=== PATIENT | female | born 2000 | race Caucasian/White ===

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

== ENCOUNTER 2019-06-03 09:00 | Inpatient (IN) | payer SELFPAY ==
[~2019-06-03] VITALS: Ht 157.5 cm; Wt 62.1 kg
[~2019-06-03 09:00] MED LIST: LAC PO; LEVAQUIN750 MG PO
[2019-06-03 11:34] LABS: BASOPHIL % 0.8 % (0-2); PLATELET COUNT 360 x10^3mcL (130-400); RED CELL DISTRIBUTION WIDTH 12.2 % (11.5-14.5)
[2019-06-03 11:35] LABS: UA SPECIFIC GRAVITY 1.015 (1.005-1.035); microscopic required? YES; urine erythrocyte 2+ (NEGATIVE)
[2019-06-03 11:50] LABS: AMPHETAMINE QUAL UR NONE DETECTED (See below)
[2019-06-03 11:58] LABS: CALCIUM 8.4 mg/dL (8.5-10.1); CHLORIDE SERUM 104 mmol/L (98-107); CREATININE SERUM 0.7 mg/dL (0.6-1.0); GFR1 > 60 mL/min; GLUCOSE SERUM 99 mg/dL (74-106); SODIUM SERUM 140 mmol/L (136-145)
[2019-06-03 12:02] LABS: ALKALINE PHOSPHATASE 92 U/L (46-116); ALT/SGPT 37 U/L (14-59); AMYLASE 34 U/L (25-115); AST/SGOT 21 U/L (15-37); BILIRUBIN TOTAL 0.2 mg/dL (0.20-1.00); LIPASE 64 IU/L (73-393); TOTAL PROTEIN, SERUM 7.7 g/dL (6.4-8.2)
[2019-06-03 12:09] LABS: ALBUMIN 3.2 g/dL (3.4-5.0)
[2019-06-03 15:37] VITALS: BP 109/77
[2019-06-03 15:40] VITALS: Ht 157.5 cm; Wt 62.1 kg
[2019-06-03 16:26] VITALS: BP 106/68
[2019-06-03 21:20] VITALS: BP 97/60
[2019-06-04 05:44] VITALS: BP 93/55
[2019-06-04 06:33] LABS: BASOPHIL % 0.2 % (0-2); PLATELET COUNT 336 x10^3mcL (130-400); RED CELL DISTRIBUTION WIDTH 12.8 % (11.5-14.5)
[2019-06-04 06:56] LABS: CALCIUM 7.9 mg/dL (8.5-10.1); CARBON DIOXIDE 25.7 mmol/L (21-32); CHLORIDE SERUM 105 mmol/L (98-107); CREATININE SERUM 0.7 mg/dL (0.6-1.0); GFR1 > 60 mL/min; GLUCOSE SERUM 119 mg/dL (74-106); MAGNESIUM 1.8 mg/dL (1.8-2.4); PHOSPHOROUS 2.4 mg/dL (2.5-4.9); POTASSIUM SERUM 3.5 mmol/L (3.5-5.1); SODIUM SERUM 138 mmol/L (136-145)
[2019-06-04 07:58] VITALS: BP 95/57
[2019-06-04 11:17] VITALS: BP 98/62
[2019-06-04 16:31] VITALS: BP 102/66
[2019-06-04 20:02] VITALS: BP 103/67
[2019-06-05 05:53] VITALS: BP 100/61
[2019-06-05 06:09] LABS: BASOPHIL % 0.4 % (0-2); PLATELET COUNT 321 x10^3mcL (130-400); RED CELL DISTRIBUTION WIDTH 12.8 % (11.5-14.5)
[2019-06-05 06:56] LABS: CALCIUM 8.4 mg/dL (8.5-10.1); CHLORIDE SERUM 103 mmol/L (98-107); CREATININE SERUM 0.6 mg/dL (0.6-1.0); GFR1 > 60 mL/min; GLUCOSE SERUM 93 mg/dL (74-106); MAGNESIUM 1.9 mg/dL (1.8-2.4); PHOSPHOROUS 2.8 mg/dL (2.5-4.9); POTASSIUM SERUM 3.6 mmol/L (3.5-5.1); SODIUM SERUM 138 mmol/L (136-145)
[2019-06-05 07:21] VITALS: BP 99/61
[2019-06-05 11:34] VITALS: BP 100/65
[2019-06-05 17:28] VITALS: BP 96/63
[2019-06-05 20:28] VITALS: BP 104/65
[2019-06-06 05:16] VITALS: BP 93/56
[2019-06-06 06:37] LABS: BASOPHIL % 0.4 % (0-2); PLATELET COUNT 367 x10^3mcL (130-400); RED CELL DISTRIBUTION WIDTH 12.5 % (11.5-14.5)
[2019-06-06 06:56] LABS: CALCIUM 8.3 mg/dL (8.5-10.1); CARBON DIOXIDE 29.9 mmol/L (21-32); CHLORIDE SERUM 103 mmol/L (98-107); CREATININE SERUM 0.7 mg/dL (0.6-1.0); GFR1 > 60 mL/min; GLUCOSE SERUM 91 mg/dL (74-106); MAGNESIUM 1.9 mg/dL (1.8-2.4); PHOSPHOROUS 3.6 mg/dL (2.5-4.9); POTASSIUM SERUM 3.6 mmol/L (3.5-5.1); SODIUM SERUM 139 mmol/L (136-145)
[2019-06-06 08:43] VITALS: BP 100/59
[2019-06-06 13:23] VITALS: BP 108/61
[2019-06-06 16:37] VITALS: BP 98/59
[2019-06-06 17:18] VITALS: BP 98/59
[2019-06-06] MEDS ORDERED: CIPRO500 MG PO (17:20)
== END 2019-06-06 18:26 | disposition home or self-care (01) | DRG 690 ==
LOC: ED 09:00 → MU 12:44 → DU 15:18 → MU 06-06 09:43
PROVIDERS: Emergency Medicine; ADMIT Internal Medicine
DX: N10 Acute pyelonephritis (principal); E44.1 Mild protein-calorie malnutrition; Z16.24 Resistance to multiple antibiotics; B96.20 Unspecified Escherichia coli [E. coli] as the cause of diseases classified elsewhere; D27.1 Benign neoplasm of left ovary; E83.51 Hypocalcemia; E83.39 Other disorders of phosphorus metabolism; D64.9 Anemia, unspecified; Z68.25 Body mass index [BMI] 25.0-25.9, adult
CPT/HCPCS: G0378; J0696; J1885; J1956; J2270; J2405; J7030; Q0092